=== PATIENT | female | born 1985 | race Caucasian/White ===

== ENCOUNTER 2022-12-09 12:51 | Outpatient (CLI) | payer BC | END 2022-12-09 12:52 | disposition home or self-care (01) | LOC: CSHULT 12:51 | PROVIDERS: ATTEND Internal Medicine | DX: I50.9 Heart failure, unspecified (principal); R00.0 Tachycardia, unspecified | CPT/HCPCS: 93306 ==

== ENCOUNTER 2023-06-27 07:42 | Outpatient (CLI) | payer BC | END 2023-06-27 07:43 | disposition home or self-care (01) | LOC: CSHULT 07:42 | PROVIDERS: ATTEND Internal Medicine | DX: I10 Essential (primary) hypertension (principal) | CPT/HCPCS: 76770 ==

== ENCOUNTER 2024-01-12 09:08 | Emergency (ER) | payer BC | END 2024-01-12 11:44 | disposition home or self-care (01) | LOC: CSHERS 09:08 | DX: R10.2 Pelvic and perineal pain (principal); N81.10 Cystocele, unspecified; N81.6 Rectocele; I10 Essential (primary) hypertension; F17.200 Nicotine dependence, unspecified, uncomplicated | CPT/HCPCS: 99283 ==